=== PATIENT | female | born 1970 | race African-American/Black ===

== ENCOUNTER → 2017-11-12 12:32 | Outpatient (CLI) | payer OTHER | END | disposition home or self-care (01) | LOC: D.MRI 11-10 10:30 | DX: N36.8 Other specified disorders of urethra (principal) ==

== ENCOUNTER 2017-12-30 05:33 | Day surgery (SDC) | payer OTHER ==
[2017-12-29 11:23] LABS: HEMATOCRIT 39.3 % (36.0-48.0); HEMOGLOBIN 12.8 g/dL (12-16); MCH 28.3 pg (26.0-34.0); MCHC 32.6 g/dL (31.0-37.0); MCV 86.8 fL (80.0-100.0); MEAN PLATELET VOLUME 10.5 fL (7.4-10.4); RBC 4.53 10x6/uL (4.00-5.40); RDW 14.4 % (11.5-14.5); WBC 4.4 10x3/uL (4.8-10.8)
[~2017-12-30] VITALS: Ht 170.2 cm; Wt 78.9 kg
--- NOTE | ~2017-12-30 | OP ---
PATIENT NAME: ELIAS RYAN MEDICAL RECORD: [id number] :72 [facility] DATE: SURGEON: CHAPITO JACKSON MD DATE OF OPERATION: 12/30/2017 SURGEON: Chapito Jackson MD ANESTHESIA: General anesthesia by Ryan Bustos CRNA. PREOPERATIVE DIAGNOSIS: Left periurethral tumor 4 cm. PROCEDURE: Cystoscopy and excision of left periurethral tumor 4 cm. FINDINGS: A 4 cm soft tissue tumor to the left of the urethra, not involving the urethra. Tissues are highly distorted by the mass effect of the tumor. On cystoscopy, the patient has a normal urethra. Single ureteral orifices bilaterally. No bladder tumors. BLOOD LOSS: 500 mL. 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 We obtained an MRI of this mass which showed that it was 4 cm in diameter and it extended under the bladder neck. Assuming that it was the urethral diverticulum, I explained to the patient that if it involves the bladder neck, I would have to excise the bladder neck and repair it which may lead to stress incontinence. The patient was therefore consented for excision of urethral diverticulum and possible placement of a pubovaginal sling. She has limited comprehension of the events, she is mentally challenged. Unfortunately, her brother is also mentally challenged and her mother has dementia. We tried to explain the situation to the best of the understanding of the family. She has no allergies. She was given ampicillin and sulbactam 3 grams second officer to the OR. DESCRIPTION OF PROCEDURE: The patient was given induction of general anesthesia. She was then placed into dorsal lithotomy position and shaved, prepped and draped. It was very difficult to prep the vagina as the mass actually occludes almost the whole vaginal introitus. On examining the patient under anesthesia, I could not find the urethral orifice. No mass fills up the space where the urethra normally would be and also bulges somewhat under the left labia majora. A weighted speculum was placed to hold on the posterior vaginal wall. The right labia majora was retracted laterally using a #2 nylon suture which anchored to the medial thigh. I could not insert a suture on the left as this is involved by the mass. Not knowing where the urethra was, I stuck to making a transverse incision in the region just about a centimeter below the clitoris. The skin here has been stretched very tautly by the mass. I extended it somewhat to the patient's right. Instead of encountering the cyst wall or cyst fluid, we instead encountered a solid soft tissue mass. This mass seems to be encapsulated itself as it has a very thin shell around it. It was very easy to actually shell this mass out away from the vaginal mucosa. Initially, this was done using closed Metzenbaum scissors, which we just slid around to perform blunt dissection. I was unable to put my finger in and perform blunt dissection. The procedure is rather analogous to a suprapubic prostatectomy in terms of blunt finger dissection. We did encounter some vigorous bleeding. However, the artery seemed to be coming from behind the OPERATIVE REPORT [id number] ELIAS RYAN tumor. Therefore, the only course we had to do was to completely shell out the tumor and then finally use Bovie to divide the artery supplying the tumor. Once the tumor was entirely removed, it was sent to pathology in formalin. Quite vigorous bleeding of an arterial nature was seen from the artery supplying the tumor. The 4-0 Vicryl sutures were used in a [id number] to stop the arterial bleeding. There was still some venous oozing. Finally, we had to put a rolled Surgicel into the cavity to promote hemostasis. The urethra was found to the deviated quite significantly to the left. We were able to put a cystoscope into the urethra and perform cystoscopy. The urethra itself was intact with no signs of injury and no involvement with the mass. The bladder also was intact with no injury. Once the scope was removed, we placed a Mcmillan catheter in and put it to bag drainage. The vaginal skin was reapproximated using running 4-0 Monocryl. Vaginal packing was then inserted into the vagina. The vaginal packing will be removed prior to the patient going home today. She will be going home with the Mcmillan catheter to bag drainage. I will see her in followup next week to remove the Mcmillan catheter and go over the pathology with her. TRANSINT:[id number] Voice Confirmation ID: [id number] DOCUMENT ID: [id number] CHAPITO JACKSON MD at 1203 CC: [id number] DICTATION DATE: 12/30/17918 INVESTIGATIVE AGENT: 12/30/17 1137 [facility] [address] [place] [address]
[~2017-12-30 05:33] MED LIST: DILANTIN100 MG PO; ZOCOR20 MG PO
[2017-12-30 06:39] VITALS: BP 133/83; Ht 170.2 cm; Wt 78.9 kg
[2017-12-30 07:00] LABS: HCG URINE NEGATIVE (NEGATIVE)
== END 2017-12-30 11:05 | disposition home or self-care (01) ==
LOC: D.OPS 05:33 → D.PAN 07:30 → D.OPS 11:05
PROVIDERS: Anesthesiology; Urology
DX: D49.89 Neoplasm of unspecified behavior of other specified sites (principal); Z01.812 Encounter for preprocedural laboratory examination

== ENCOUNTER → 2018-01-28 16:34 | Outpatient (CLI) | payer OTHER ==
[2017-12-30 06:39] VITALS: BMI 27.3
== END | disposition home or self-care (01) ==
LOC: D.MAMMO 12-08 14:00
DX: Z12.31 Encounter for screening mammogram for malignant neoplasm of breast (principal)